=== PATIENT | female | born 1960 ===

== ENCOUNTER 2024-01-21 15:00 | Inpatient (IN) | payer OTHER ==
[~2024-01-21] VITALS: Ht 165.1 cm; Wt 72.8 kg
[2024-01-21 16:50] VITALS: BP 146/83
[2024-01-21] MEDS ORDERED: Nitroglycerin 0.4 MG SUBL SL PRN (18:05)
[2024-01-21] MEDS ORDERED: Acetaminophen 325 MG TABLET PO PRN (18:05)
[2024-01-21 18:13] LABS: Anti-Xa UFH, PHA Monitoring 0.6 IU/mL
[2024-01-21] MEDS ORDERED: Dose Adjust by Pharmacy XX STA (18:24)
[2024-01-21] MEDS ORDERED: Heparin Sodium,Porcine/0.5 NS 500 ML IV SCH (18:25)
[2024-01-21] MEDS ORDERED: LISI20 PO (18:28)
[2024-01-21] MEDS ORDERED: Metoprolol Tartrate 25 MG Tab PO SCH (19:00)
[2024-01-21] MEDS ORDERED: Atorvastatin 40 MG Tab PO SCH (19:00)
[2024-01-21 19:11] LABS: Magnesium, Blood 2.1 mg/dL (1.6-2.4); Phosphorus, Blood 3.8 mg/dL (2.5-4.9)
[2024-01-21] MEDS ORDERED: Nicotine 14 MG PATCH TOP SCH (20:00)
[2024-01-21 20:16] VITALS: BP 141/83
[2024-01-21] MEDS ORDERED: Triamcinolone Acet 0.1% Ointment 15 GM TOP SCH (21:00)
[2024-01-21] MEDS ORDERED: Lisinopril 20 MG Tab PO SCH (21:00)
[2024-01-21] MEDS ORDERED: Clarify Drug Order XX ONE (23:55)
[2024-01-21 23:58] VITALS: BP 135/77
[2024-01-22] VITALS (10 sets, daily range): BP systolic 105–129; BP diastolic 66–91
[2024-01-22 03:53] LABS: BASOPHILS ABSOLUTE AUTO 0.06 K/mm3 (0.00-0.23); BASOPHILS PERCENT AUTO 1 % (0-2); EOSINOPHILS ABSOLUTE AUTO 0.21 K/mm3 (0.00-0.68); EOSINOPHILS PERCENT AUTO 3 % (0-6); Hemoglobin 14.8 g/dL (11.5-16.0); IMMATURE GRAN ABSOLUTE AUTO 0.02 K/mm3 (0.00-0.10); IMMATURE GRAN PERCENT AUTO 0 % (0-1); LYMPHOCYTES ABSOLUTE AUTO 2.07 K/mm3 (0.84-5.20); LYMPHOCYTES PERCENT AUTO 27 % (21-46); MONOCYTES ABSOLUTE AUTO 0.62 K/mm3 (0.16-1.47); MONOCYTES PERCENT AUTO 8 % (4-13); Mean Corpuscular HGB 28.9 pg (26.0-34.0); Mean Corpuscular HGB Conc 32.9 g/dL (31.5-36.5); Mean Corpuscular Volume 88 fL (80-100); Mean Platelet Volume 9.7 fL (9.1-12.4); NEUTROPHILS ABSOLUTE AUTO 4.77 K/mm3 (1.96-9.15); NEUTROPHILS PERCENT AUTO 62 % (41-73); Platelet Count 265 K/mm3 (150-400); RDW Coefficient Variation 13.4 % (11.7-14.2); RDW Standard Deviation 43.5 fL (35.1-46.3); Red Blood Cell Count 5.12 M/mm3 (3.80-5.20); White Blood Cell Count 7.75 K/mm3 (4.00-11.30)
[2024-01-22] MEDS ORDERED: Clarify Drug Order XX ONE (04:15)
[2024-01-22 04:24] LABS: Alanine Aminotransfer (ALT/SGP 20 U/L (12-78); Albumin, Blood 2.9 g/dL (3.4-5.0); Albumin/Globulin Ratio 0.9 (0.8-1.8); Alk Phos 76 U/L (50-136); Anion Gap 9 mmol/L (3-11); Aspartate Aminotrans (AST/SGOT 17 U/L (12-37); Bilirubin, Total 0.7 mg/dL (0.1-1.0); Blood Urea Nitrogen 26 mg/dL (8-24); Bun/Creatinine Ratio 25.2 (12.0-20.0); CO2, Blood 24 mmol/L (21-32); Calcium, Blood 8.7 mg/dL (8.5-10.1); Chloride, Blood 111 mmol/L (98-108); Cholesterol 134 mg/dL (50-200); Creatinine, Blood 1.03 mg/dL (0.40-1.00); Globulin, Blood 3.3 g/dL (2.2-4.0); Glomerular Filtration Rate 61 (60-); Glucose, Blood 100 mg/dL (70-99); HDL Cholesterol 68 mg/dL (>39); LDL/HDL RATIO 0.7; Low Density Lipoprotein Chol 51 mg/dL (0-110); Potassium, Blood 4.3 mmol/L (3.5-5.5); Sodium, Blood 140 mmol/L (136-145); Thyroid Stimulating Hormone <0.005 uIU/mL (0.360-4.800); Total Protein, Blood 6.2 g/dL (6.4-8.2); Triglycerides 76 mg/dL (30-160); Very Low Density Lipoprot Chol 15 mg/dL (6-32)
--- NOTE | 2024-01-22 06:39 | NUR ---
NO C/O OF CP OR SOB THROUGHOUT SHIFT. PT REMAINED AOX4, CALM AND COOPERATIVE. WAS SLEEPING AND DID DESAT X2 INTO THE MID 80S. PT SELF-RECOVERED X1 AND RECOVERED UPON BEING WOKEN UP THE LAST TIME. PT BREATHING SHALLOW WHILE SLEEPING. PT DID HAVE AN 8 SECOND RUN OF SVT WHILE ASLEEP, VITALS REMAIN STABLE. TROPONINS REMAINED STABLE WITHOUT ANY CHEST PAIN/SOB OR CHEST PRESSURE. PT TOLERATING HEPARIN DRIP WELL W/O S/S BLEEDING/BRUISING. RATE REMAINS UNCHANGED AT 12UNITS/KG/HR. PT REMAINS NPO AT THIS TIME.
[2024-01-22] MEDS ORDERED: Aspirin 81 MG Chew PO SCH (09:00)
[2024-01-22] MEDS ORDERED: Metoprolol Tartrate 25 MG Tab PO SCH (09:00)
[2024-01-22] MEDS ORDERED: NS 1,000 ML IV ONE ×2 (10:20→11:14)
[2024-01-22] MEDS ORDERED: Verapamil HCL 2.5 MG/ML 2ML Injection ONE (10:20)
[2024-01-22] MEDS ORDERED: Heparin Sodium 1000 Units/ML 10ML MDV ONE (10:20)
[2024-01-22] MEDS ORDERED: NS 250 ML IV ONE (10:20)
[2024-01-22] MEDS ORDERED: Midazolam HCl 1MG / ML 2ML Vial ONE (11:14)
[2024-01-22] MEDS ORDERED: FentaNYL Citrate 50 MCG/ML 2 ML Injection ONE (11:14)
[2024-01-22] MEDS ORDERED: ASPI81CH (15:15)
[2024-01-22] MEDS ORDERED: NICODERM CQ1 EA11 TOP (15:16)
--- NOTE | 2024-01-22 16:51 | NUR ---
SHIFT SUMMARY; ASSUMED CARE AT 0700. A/A/OX4, INDEPENDANT IN ROOM. VSS, DENIES SEVERE CHEST PAIN LIKE PREVIOUS DAY BUT STATES STILL FEELS PRESSURE. ANGIOGRAM COMPLETED. TR BAND TO RIGHT RADIAL SITE RECOVERED PER ORDERS, CAP REFILL <3, RADIAL PULSE REMAINED PALPABLE. TEGADERM AND ARM BOARD IN PLACE. VERBAL AND WRITTEN DISCHARGE INSTRUCTIONS GIVEN. DC'D VIA TAXI.
== END 2024-01-22 17:26 | disposition home or self-care (01) | DRG 281 ==
LOC: PCU 15:00
PROVIDERS: Family Medicine; Student in an Organized Health Care Education/Training Program; ADMIT Emergency Medicine
PROC: 4A023N7 Measurement of Cardiac Sampling and Pressure, Left Heart, Percutaneous Approach (ICD-10-PCS; principal; 2024-01-22)
PROC: B2111ZZ Fluoroscopy of Multiple Coronary Arteries using Low Osmolar Contrast (ICD-10-PCS; 2024-01-22)
DX: I21.4 Non-ST elevation (NSTEMI) myocardial infarction (principal); F15.20 Other stimulant dependence, uncomplicated; I69.354 Hemiplegia and hemiparesis following cerebral infarction affecting left non-dominant side; Z66 Do not resuscitate; I10 Essential (primary) hypertension; F17.210 Nicotine dependence, cigarettes, uncomplicated; I73.9 Peripheral vascular disease, unspecified; R21 Rash and other nonspecific skin eruption; I95.9 Hypotension, unspecified; I25.10 Atherosclerotic heart disease of native coronary artery without angina pectoris; Z60.2 Problems related to living alone; Z79.899 Other long term (current) drug therapy
CPT/HCPCS: 36415; 76937; 80053; 80061; 83036; 83735; 84100; 84439; 84443; 84484; 85025; 85520; 85730; 93306; 93458; 99152; 99153; A9270; C1769; C1887; C1894; J1644; J2250; J3010; J7030; J7050; Q9967